=== PATIENT | female | born 1980 | race Caucasian/White ===

== ENCOUNTER 2025-02-17 13:43 | Emergency (ER) | payer MEDICAID ==
[~2025-02-17] VITALS: Ht 162.6 cm; Wt 68.0 kg
[2025-02-17 13:49] VITALS: TEMP 36.8; O2SAT 98
[2025-02-17] MEDS ORDERED: BACITRACIN ZINC OINT UDPKT TOP ONE (15:15)
[2025-02-17] MEDS ORDERED: LIDOCAINE HCL/PF 1% 10 MG/ML 5ML VIAL INFIL ONE ×2 (15:15→17:15)
[2025-02-17] MEDS: TETANUS, DIPHTHERIA, PERTUSSIS VAC/PF 0.5ML (>10YR OLD) IM ONE (15:41)
[2025-02-17] MEDS: KETOROLAC 15MG/ML VIAL IM ONE (15:42)
[2025-02-17] MEDS ORDERED: AMOX1TAB16 MT (17:44)
[2025-02-17] MEDS ORDERED: NAPR-1176 MT (17:51)
[2025-02-17 18:29] VITALS: TEMP 98.2
[2025-02-17] MEDS: ACETAMINOPHEN 325MG TABLET PO ONE (18:29)
[2025-02-17 18:47] VITALS: BP 143/73; PULSE 77; RESP 17; O2SAT 99
== END 2025-02-17 18:49 | disposition home or self-care (01) ==
LOC: ER 13:43
DX: S51.811A Laceration without foreign body of right forearm, initial encounter (principal); Z79.1 Long term (current) use of non-steroidal anti-inflammatories (NSAID); W54.0XXA Bitten by dog, initial encounter; Y93.89 Activity, other specified; Y92.89 Other specified places as the place of occurrence of the external cause; Y99.8 Other external cause status
CPT/HCPCS: 73090; 90715; 12005; 90471; 96372; 99284; J1885; J2003; Z7610

== ENCOUNTER 2025-02-24 21:13 | Emergency (ER) | payer MEDICAID ==
[~2025-02-24] VITALS: Ht 157.5 cm; Wt 84.7 kg
[~2025-02-24 21:13] MED LIST: AMOX1TAB16 MT; NAPR-1176 MT
[2025-02-24 21:15] VITALS: O2SAT 99
[2025-02-24 21:26] VITALS: BP 125/86; PULSE 87; RESP 18; TEMP 36.9; O2SAT 99
[2025-02-24 22:30] LABS: BASOPHILS % 0.5 % (0.0-2.0); EOSINOPHILS % 1.7 % (0.0-5.0); HEMATOCRIT. 35.0 % (36.0-48.0); HEMOGLOBIN. 11.5 g/dL (12.0-16.0); LYMPHOCYTES % 32.8 % (20.0-50.0); MEAN PLATELET VOLUME 9.9 fl (7.4-10.4); MONOCYTES % 7.1 % (2.0-8.0); NEUTROPHILS % 57.9 % (40.0-76.0); PLATELET 236 x1000/uL (130-400); RED BLOOD CELL COUNT 4.26 mill/uL (4.2-5.4); RED CELL DISTRIBUTION WIDTH 15.4 % (11.6-14.6)
[2025-02-24 22:45] LABS: CREATININE 0.8 mg/dL (0.6-1.0); UREA NITROGEN BLOOD 13 mg/dL (9-23)
[2025-02-24 22:49] LABS: HCG SCREEN NEGATIVE
[2025-02-25] MEDS ORDERED: ONDA4TAB50 MT (04:09)
[2025-02-25] MEDS ORDERED: FAMO-135 MT (04:09)
[2025-02-25] MEDS ORDERED: IOHEXOL-300 100 ML BOTTLE ONE (06:38)
== END 2025-02-25 04:10 | disposition home or self-care (01) ==
LOC: ER 21:13
DX: S51.811D Laceration without foreign body of right forearm, subsequent encounter (principal); Z79.1 Long term (current) use of non-steroidal anti-inflammatories (NSAID); Z79.899 Other long term (current) drug therapy; Z98.890 Other specified postprocedural states; W54.0XXD Bitten by dog, subsequent encounter
CPT/HCPCS: 99285; 80048; 84703; 85025; 36415; 73201; Q9967